=== PATIENT | male | born 1970 | race Caucasian/White ===

== ENCOUNTER 2023-09-29 17:20 | Emergency (ER) | payer OTHER, SELFPAY ==
--- NOTE | ~2023-09-29 | CT_ITS ---
EXAMINATION: CT abdomen pelvis w con DATE: 09/29/2023 19:36 INDICATION: generalized pain TECHNIQUE: Computed tomography (CT) of the abdomen and pelvis was performed with 100 mL Omnipaque-350 intravenous contrast. Automated exposure control and iterative reconstruction technique were employe d. The dose-length product was 666.72 mGy-cm. COMPARISON: None. FINDINGS: Lower thorax: Moderate linear bibasilar scar/atelectasis. Minimal coronary artery calcification. Liver: Subcentimeter cyst or hemangioma near the liver dome. Biliary/Gallbladder: Gallbladder is normal. No bile duct dilation. Pancreas: No mass or duct dilation. Spleen: Normal. Adrenals:Indeterminate density (72) 2.3 cm right adrenal lesion. Kidneys: No suspicious mass, obstructing stone, or hydronephrosis. GI tract: Mild distal esophageal and gastric wall edema. Fluid-filled, mildly distended stomach. No s mall or large bowel dilation. Normal appendix. Diverticulosis without diverticulitis. Mesentery/Peritoneum: No ascites, mass, or free air. Retroperitoneum: No mass. Pelvis: Pelvic organs are within normal limits. Soft Tissues: Small uncomplicated fat-containing bilateral inguinal and umbilical hernias. Bones: No acute osseous finding. IMPRESSION: Mild esophagitis/gastritis. Mildly distended, fluid-filled stomach. Correlate for any clinical findings of gastric outlet obstruc tion/gastroparesis. Indeterminate right adrenal mass, recommend nonemergent but timely outpatient adrenal CT for further evaluation. Reviewed, dictated and finalized at location K. DAMAGE APPRAISER IMPRESSION: Mild esophagitis/gastritis. Mildly distended, fluid-filled stomach. Correlate for any clinical findings of gastric outlet obstruction/gastroparesis. Indeterminate right adrenal mass, recommend nonemergent but timely outpatient a drenal CT for further evaluation.
--- NOTE | ~2023-09-29 | XR_ITS ---
EXAMINATION: XR chest 2V Exam Date/Time: 09/29/2023 18:30 [employer]OX TRUCK OWNER OPERATOR HISTORY: upper abdominal pain started today, hx current glioblastoma Comparison: None. RESULT: Lines, tubes, and devices: None. Lungs and pleura: Exam limited by low lung volumes with crowding, especially in the lateral view. Bi basilar atelectasis/scar. Cardiomediastinal silhouette: Stable. Other: No acute osseous or upper abdominal finding. IMPRESSION: No acute cardiopulmonary process. Reviewed, dictated and finalized at location K. TRUCK OWNER OPERATOR
[2023-09-29 17:22] VITALS: BP 126/89; PULSE 87; RESP 16; TEMP 36.4; O2SAT 94
--- NOTE | 2023-09-29 17:43 | ECG_ITS ---
Measurements Intervals [place] Rate: 70 P: 37 [place]: 197 QRS: 5 QRSD: 113 T: 11 QT: 368 QTc: 400 Interpretive Statements SINUS RHYTHM INTRAVENTRICULAR CONDUCTION DELAY DELAYED PRECORDIAL R/S TRANSITION BASELINE ARTIFACT- I, II, III, AVR, AVL, AVF, V4, V6 BORDERLINE ECG NO PREVIOUS ECG AVAILABLE FOR COMPARISON Electronically Signed On 09-29-2023 20:34:58 EMPLOYMENT SERVICE SPECIALIST by Hamzah Ruby D.O.
[2023-09-29] MEDS: SODIUM CHLORIDE 0.9% IV 1,000 ML 999 ML IV CONT (18:03)
[2023-09-29] MEDS: ONDANSETRON INJ 4 MG/2 ML VIAL IV PUSH (18:03)
[2023-09-29] MEDS: HYDROmorphone HCL INJ (*CRX) 1 MG/ML SYR 0.5 MG IV PUSH ×3 (18:03→23:35)
--- NOTE | 2023-09-29 18:23 | ED.GENADULT ---
HPI - General Adult General Chief complaint: Abdominal Pain <DONELL Melendez Last Filed: 09/30/23 01:37> Stated complaint: abd pain <DONELL Melendez Last Filed: 09/30/23 01:37> Time Seen by Provider: 09/29/23 17:32 <DONELL Melendez Last Filed: 09/30/23 01:37> Source: patient <DONELL Melendez Last Filed: 09/30/23 01:37> Mode of arrival: ambulatory <DONELL Melendez Last Filed: 09/30/23 01:37> Limitations: no limitations <DONELL Melendez Last Filed: 09/30/23 01:37> History of Present Illness HPI narrative: This is a 53-year-old male with PMH of glioblastoma on hospice who presents to the ED with chief complaint of upper abdominal pain beginning two days ago and worsening today. Patient reports that when he eats he has a burning pain in the upper abdomen. He has had a couple episodes of vomiting and feels nauseous. He has tried morphine at home with little relief. Last bowel movement this morning. He tried a suppository because he had been feeling constipated and was only able to pass small stools. Endorses belching. States it ?feels like something is stuck at the bottom of my esophagus.? Denies trouble swallowing. denies GI bleeding symptoms. Denies fevers, chills, chest pain. <DONELL Melendez Last Filed: 09/30/23 01:37> Related Data Allergies/adverse reactions: Allergies Allergy/AdvReac Type Severity Reaction Status Date / Time metoclopramide [From Reglan] Allergy Anaphylactic Verified 09/29/23 18:04 Shock <DONELL Melendez Last Filed: 09/30/23 01:37> Review of Systems Review of Systems: All systems as dictated in HPI <DONELL Melendez Last Filed: 09/30/23 01:37> Exam Narrative: GENERAL: Well-appearing, well-nourished, and in no acute distress. HEAD: Normocephalic, atraumatic. EYES: PERRLA and EOMI. ENT: Nares clear, no rhinorrhea or epistaxis. Mucous membranes moist. Oropharynx without tonsillar hypertrophy exudate or other lesions. NECK: Supple. No adenopathy or masses. CHEST: No respiratory distress. Clear to auscultation. No wheezes rales or rhonchi HEART: Regular rate and rhythm. No murmur heard. Normal peripheral pulses. ABDOMEN: Mild epigastric tenderness. soft, nontender, nondistended, normal active bowel sounds. MSK: Normal range of motion. No edema. SKIN: Warm, dry, no rash. NEURO: Alert and oriented x3. No focal deficits. PSYCH: Normal mood and affect. <Anthony Jacinto PA-C - Last Filed: 09/30/23 01:37> Course DIE OUT WORKER/PA Physician Supervision For this patient encounter, I reviewed the DIE OUT WORKER or PA documentation, treatment plan, and medical decision making; and I had [id number] time with this patient. <Nate Shen MD - Last Filed: 09/30/23 12:56> Vital Signs Vital signs: Vital Signs Temperature 97.5 F L 09/29/23 17:22 Pulse Rate 87 09/29/23 17:22 Respiratory Rate 16 09/29/23 17:22 Blood Pressure 126/89 09/29/23 17:22 Pulse Oximetry 94 09/29/23 17:22 Temperature 97.5 F L 09/29/23 17:22 Pulse Rate 76 09/29/23 23:37 Respiratory Rate 16 09/29/23 23:37 Blood Pressure 128/88 09/29/23 23:37 Pulse Oximetry 99 09/29/23 23:37 <Anthony Jacinto PA-C - Last Filed: 09/30/23 01:37> Vital Signs Temperature 97.5 F L 09/29/23 17:22 Pulse Rate 87 09/29/23 17:22 Respiratory Rate 16 09/29/23 17:22 Blood Pressure 126/89 09/29/23 17:22 Pulse Oximetry 94 09/29/23 17:22 Temperature 97.5 F L 09/29/23 17:22 Pulse Rate 76 09/29/23 23:37 Respiratory Rate 16 09/29/23 23:37 Blood Pressure 128/88 09/29/23 23:37 Pulse Oximetry 99 09/29/23 23:37 <Nate Shen MD - Last Filed: 09/30/23 12:56> Medical Decision Making MDM Narrative Medical decision making narrative: This is a 53-year-old male with history of glioblastoma on hospice who presents to the ED today for abdominal distention and pain. Vitals
[2023-09-29 19:00] LABS: Lactic Acid Reflex 1.4 mmol/L (0.7-2.0)
[2023-09-29 19:01] LABS: Alanine Aminotransferase 47 U/L (6-50); Albumin Level 4.9 g/dL (3.5-5.1); Alkaline Phosphatase 153 U/L (38-126); Anion Gap 5 mmol/L (8-16); Aspartate Amino Transferase 40 U/L (17-59); Blood Urea Nitrogen 27 mg/dL (9-20); Calcium 10.1 mg/dL (8.4-10.2); Carbon Dioxide 34 mmol/L (22-30); Chloride 103 mmol/L (98-107); Estimated CRCL calculation 98 ml/min; Estimated Glomerular Filt Rate > 60; Glucose 91 mg/dL (65-110); Lipase 40 U/L (23-300); Potassium 4.3 mmol/L (3.4-5.0); Sodium 142 mmol/L (137-145)
[2023-09-29] MEDS: HYDROmorphone HCL INJ (*CRX) 1 MG/ML SYR IV PUSH (19:06)
[2023-09-29 19:16] LABS: Basophils Percent Auto 0.4 % (0.2-1.2); Eosinophils Absolute Auto 0.1 K/mm3 (0-0.3); Eosinophils Percent Auto 1.6 % (0-4.4); Hematocrit 44.3 % (42.0-52.0); Hemoglobin 14.4 g/dL (14.0-18.0); Immature Granulocyte Absolute 0.04 K/mm3 (0.00-0.031); Immature Granulocyte Percent A 0.5 % (0-0.5); Mean Corpuscular HGB Conc 32.5 g/dl (32-36); Mean Corpuscular Hemoglobin 30.5 pg (26-34); Mean Corpuscular Volume 93.9 fl (80-100); Mean Platelet Volume 8.6 fl (7.4-10.4); Monocytes Absolute Auto 0.9 K/mm3 (0.1-0.6); Monocytes Percent Auto 11.5 % (2.6-8.5); Neutrophils Absolute Auto 5.3 K/mm3 (1.3-6.7); Platelet Count Result 193 k/mm3 (150-375); Red Blood Count 4.72 M/mm3 (4.6-6.20); Red Cell Distribution Width 15.4 % (11.5-14.5); White Blood Count 8.2 K/mm3 (4.5-10.0)
[2023-09-29] MEDS: BELLADONNA ALK/PHENOB ELIX 10 ML, MAG HYDROX/ALUMINUM HYD/SIMETH 30 ML, LIDOCAINE HCL 2... PO (20:13)
[2023-09-29] MEDS: FAMOTIDINE 20 MG/2 ML VIAL IV PUSH (21:05)
[2023-09-29] MEDS: ERYTHROMYCIN LACTOBIONATE INJ 250 MG in SODIUM CHLORIDE 0.9% IV 100 ML 200 MG IVPB (22:12)
[2023-09-29 22:13] VITALS: BP 131/95; PULSE 80; RESP 16; O2SAT 98
[2023-09-29 23:37] VITALS: BP 128/88; PULSE 76; RESP 16; O2SAT 99
== END 2023-09-29 23:59 | disposition hospice, home (50) ==
PROVIDERS: Emergency Provider Physician Assistant; PCP Family Medicine
DX: K29.70 Gastritis, unspecified, without bleeding (principal); K31.84 Gastroparesis; C71.9 Malignant neoplasm of brain, unspecified; I45.9 Conduction disorder, unspecified
CPT/HCPCS: 36415; 71046; 74177; 80048; 80076; 83605; 83690; 85025; 93005; 96361; 96365; 96375; 96376; 99284; A9270; J1170; J1364; J2405; J7030; Q9967